=== PATIENT | male | born 1960 | race Caucasian/White ===

== ENCOUNTER 2017-03-03 11:31 | Day surgery (SDC) | payer BC ==
[2017-02-27 13:28] VITALS: BMI 33.0
[~2017-03-03 11:31] MED LIST: DEXAMETHASONE SOD PHOSPHATE 10 MG/ML 1 ML VIAL IV ONE; HEPARIN SODIUM,PORCINE 5,000 UNIT/ML 1 ML VIAL SQ ONE; LACTATED RINGERS 1,000 ML IV SCH; ONDANSETRON 4 MG/2 ML VIAL IVP ONE; ceFAZolin 2 GM in SODIUM CHLORIDE 0.9% 100 ML IVPB ONE
[2017-03-03 12:21] LABS: Glucose,Whole Blood 125 mg/dL (75-99)
[2017-03-03 12:39] VITALS: TEMP 97.2
--- NOTE | 2017-03-03 13:11 | P.GSHP ---
History of Present Illness H&P Date: 03/03/17 Chief Complaint: Right inguinal hernia Patient here today with complaints of a bulge in the right groin. This is been enlarging in size and is more uncomfortable lately. He was found in the office to have a reducible right inguinal hernia. No nausea or vomiting. No change in bowel habits. No history of prior hernias. No left-sided complaints. Past Medical History Past Medical History: Diabetes Mellitus, Hyperlipidemia Additional Past Medical History / Comment(s): inguinal hernia History of Any Multi-Drug Resistant Organisms: None Reported Past Surgical History: Orthopedic Surgery, Tonsillectomy Additional Past Surgical History / Comment(s): LT KNEE SCOPE X2 Past Anesthesia/Blood Transfusion Reactions: No Reported Reaction Smoking Status: Never smoker - Past Family History Mother Family Medical History: No Reported History Medications and Allergies Home Medications Medication Instructions Recorded Confirmed Type Atorvastatin [Lipitor] 40 mg PO DAILY 06/06/15 03/03/17 History Fish Oil/Dha/Epa [Fish Oil 1,200 1,200 mg PO BID 06/06/15 03/03/17 History mg Fish Oil] Loratadine [Claritin] 10 mg PO DAILY 06/06/15 03/03/17 History Multivitamin [Men's Multi-Vitamin] 1 tab PO DAILY 06/06/15 03/03/17 History glyBURIDE [Diabeta] 2.5 mg PO AC-BRKFST 06/06/15 03/03/17 History metFORMIN HCL [Glucophage] 1,000 mg PO BID 06/06/15 03/03/17 History Dapagliflozin Propanediol [Farxiga] 5 mg PO DAILY 02/27/17 03/03/17 History Lisinopril [Zestril] 2.5 mg PO QAM 02/27/17 03/03/17 History Allergies Allergy/AdvReac Type Severity Reaction Status Date / Time No Known Allergies Allergy Verified 03/03/17 12:00 Surgical - Exam Vital Signs Temp Pulse Resp BP Pulse Ox 97.2 F L 68 16 142/95 97 03/03/17 12:37 03/03/17 12:37 03/03/17 12:37 03/03/17 12:37 03/03/17 12:37 Physical exam: General: Well-developed, well-nourished HEENT: Normocephalic, sclerae nonicteric Abdomen: Nontender, nondistended, reducible right inguinal hernia, both testes normal Extremities: No edema Neuro: Alert and oriented Results - Labs Abnormal Lab Results - Last 24 Hours (Table) 03/03/17 Range/Units 12:19 POC Glucose (mg/dL) 125 H (75-99) mg/dL Assessment and Plan (1) Right inguinal hernia Narrative/Plan: Will proceed with da Doreen assisted laparoscopic right inguinal hernia repair. Plans for mesh utilization discussed. Risks of bleeding, infection, recurrence , nerve injury, numbness, pain, bladder and bowel injury, conversion to an open procedure was discussed. He understands and wishes to proceed. Status: Acute
[2017-03-03] MEDS ORDERED: MIDAZOLAM 2 MG/2 ML VIAL ONE (14:29)
[2017-03-03] MEDS ORDERED: LIDOCAINE 1% INJ 10MG/ML (20 ML MDV) ONE (14:29)
[2017-03-03] MEDS ORDERED: PROPOFOL 10 MG/ML 20 ML VIAL IV ONE (14:29)
[2017-03-03] MEDS ORDERED: NEOSTIGMINE 1 MG/ML 10 ML VIAL ONE (14:29)
[2017-03-03] MEDS ORDERED: fentaNYL (PF) 50 MCG/ML 2 ML AMP ONE (14:29)
[2017-03-03] MEDS ORDERED: SUCCINYLCHOLINE CHLORIDE 100 MG/5 ML SYR IV ONE (14:29)
[2017-03-03] MEDS ORDERED: ePHEDrine SULFATE/0.9% NACL/PF 50 MG/5 ML SYRINGE IV ONE (14:29)
[2017-03-03] MEDS ORDERED: ROCURONIUM BROMIDE 10 MG/ML 10 ML VIAL IV ONE (14:29)
[2017-03-03] MEDS ORDERED: GLYCOPYRROLATE 0.2 MG/ML 2 ML VIAL ONE (14:29)
[2017-03-03] MEDS ORDERED: BUPIVACAINE (PF) 0.25% 30 ML VIAL SQ ONE ×2 (14:57)
[2017-03-03] MEDS ORDERED: LACTATED RINGERS 1,000 ML IV ONE (17:19)
[2017-03-03] MEDS ORDERED: NALOXONE 0.4 MG/ML 1 ML VIAL IV PRN (17:27)
[2017-03-03] MEDS ORDERED: HYDROcodone/APAP 5-325MG 1 EACH TAB PO PRN (17:27)
[2017-03-03] MEDS ORDERED: HYDROmorphone 1 MG/ML 1 ML SYRINGE IVP PRN (17:27)
--- NOTE | 2017-03-03 17:34 | P.OP ---
Date of Procedure: 03/03/17 Procedure(s) Performed: PREOPERATIVE DIAGNOSIS: Right inguinal hernia POSTOPERATIVE DIAGNOSIS: Same PROCEDURE: Laparoscopic repair 8 inguinal hernia with the da Doreen robot assistance SURGEON: Arlene EBL: Minimal ANESTHESIA: General COMPLICATIONS: None OPERATIVE PROCEDURE: Patient was placed in the operating table in the supine position. The patient was then placed in lithotomy. The abdomen was prepped and draped in usual sterile fashion. A small vertical supraumbilical incision was made. The fascia was retracted anteriorly with Jose forceps. The Veress needle was inserted. The saline drop test was normal. Insufflation took place to 15 mmHg. A 12 mm trocar was then inserted. 2 additional 8 mm trochars were placed in the right upper quadrant and left upper quadrant under visualization. The robotic arms were then brought in and docked into place. The fenestrated bipolar was used in the left arm and the laparoscopic kit was utilized in the right arm. A 30 12 mm scope was used in the up position. The peritoneal cavity was inspected. The patient had a sliding indirect right inguinal hernia. The cecum was extending into the inguinal canal 1-2 cm. The appendix was noted to be deeper in the pelvis away from the hernia. The left groin was inspected and there was a subtle depression at the internal inguinal ring without obvious hernia. Some of the adhesions between the omentum and the right lower quadrant were divided using sharp dissection. The peritoneum was then opened cephalad to the internal inguinal ring by several centimeters. Following that careful dissection of the preperitoneal space took place. This took place using both electrocautery and sharp dissection and primarily blunt dissection. Visualization of the pubic tubercle and Miguelito's ligament took place medially. Full dissection took place laterally as well. The patient's hernia was fairly large in size. There was some induration at the very tip of the hernia sac but this was able to be fully mobilized back into the abdominal cavity. In our dissection laterally there was noted to be a defect in the abdominal wall musculature approximately 4-5 cm lateral to the internal inguinal ring and there was a portion of fat emanating through that defect. The defect was about 1.5 cm in diameter. This was an atypical appearing hernia but thankfully one that we were able to visualize and mobilize. The gonadal vessels and vas deferens were identified as part of our dissection. Care was taken to avoid use of cautery in the vicinity of the cecum. Once we had the preperitoneal space fully dissected the 15 x 10 progrip mesh was advanced into the preperitoneal space and flattened out appropriately to cover all potential hernia sites. No sutures were used. The peritoneal defect was then closed using a locking 2-0 Bridgman effects suture. 2 small defects in the peritoneum were reapproximated using short running 3-0 Vicryl sutures. A portion of the redundant hernia sac was sutured superiorly and anteriorly as well. The pneumoperitoneum was then evacuated. The fascia at the 12 mm site was closed using the Rob Parker technique and a 0 Vicryl stitch. The skin of all 3 sites was closed using a 4-0 Monocryl stitch. Steri-Strips and sterile dressings were applied. DISPOSITION: Stable to recovery room
[2017-03-03] MEDS ORDERED: KETOROLAC 30 MG/ML 1 ML VIAL IVP ONE (17:59)
[2017-03-03] MEDS: HYDROmorphone 1 MG/ML 1 ML SYRINGE IVP PRN ×2 (18:03→18:05)
[2017-03-03 18:35] VITALS: RESP 18
[2017-03-03 19:06] LABS: Glucose,Whole Blood 168 mg/dL (75-99)
[2017-03-03 19:51] VITALS: BP 148/80; PULSE 85
== END 2017-03-03 20:15 | disposition home or self-care (01) ==
LOC: OR 11:31
PROVIDERS: ATTEND Surgery
DX: K40.90 Unilateral inguinal hernia, without obstruction or gangrene, not specified as recurrent (principal); E11.9 Type 2 diabetes mellitus without complications; E78.5 Hyperlipidemia, unspecified; I10 Essential (primary) hypertension; Z79.84 Long term (current) use of oral hypoglycemic drugs; Z79.899 Other long term (current) drug therapy
CPT/HCPCS: 49650; S2900

== ENCOUNTER → 2019-06-07 | Outpatient (CLI) | payer BC ==
[~2019-06-07] MED LIST changes: -DEXAMETHASONE SOD PHOSPHATE 10 MG/ML 1 ML VIAL IV ONE; -HEPARIN SODIUM,PORCINE 5,000 UNIT/ML 1 ML VIAL SQ ONE; -LACTATED RINGERS 1,000 ML IV SCH; -ONDANSETRON 4 MG/2 ML VIAL IVP ONE; +REGADENOSON 0.4 MG/5 ML SYRINGE IV ONE; -ceFAZolin 2 GM in SODIUM CHLORIDE 0.9% 100 ML IVPB ONE
--- NOTE | 2019-06-07 12:20 | NM ---
EXAMINATION TYPE: NM stress lexiscan cardiolite DATE OF EXAM: 06/07/2019 COMPARISON: NONE HISTORY: Precordial chest pain TECHNIQUE: After the intravenous administration of 10.47 mCi Tc 99m Sestamibi - Cardiolite resting S PECT images acquired 50 minutes post injection. The patient received 0.4mg Lexiscan, 25.9 mCi Tc 99m Sestamibi - Stress images obtained [address] injection FINDINGS: Review of stress and rest SPECT images demonstrates no distinct perfusion abnormality. Gated analysi s shows normal wall motion with an estimated left ventricular ejection fraction of 65 %. IMPRESSION: No scintigraphic evidence for reversible ischemia.
--- NOTE | 2019-06-07 13:00 | EST ---
EXERCISE STRESS AGE: 58 SEX: M HT: 74" WT: 254 PROTOCOL: Lexiscan Cardiolite Stress Test HEART RATE REST: 65 BLOOD PRESSURE REST: 140/79 MAXIMUM HEART RATE ACHIEVED: 87 MAXIMUM BLOOD PRESSURE: 142/75 INDICATIONS: Chest pain. CLINICAL INFORMATION: Baseline rhythm is sinus mechanism rate of 65, normal axis, intervals, poor R-wave progression. baseline blood pressure 140/79 mmHg. Patient received an injection of Lexiscan. Electrocardiographic monitoring revealed no evidence of diagnostic ischemic ST deviation, rare PVCs were noted. Cardiolite was injected per protocol. CONCLUSION: 1. Nondiagnostic electrocardiograph stress testing. 2. Rare premature ventricular contractions. 3. Nuclear images will be reported separately. MMODL / IJN: [id number] /
== END | disposition home or self-care (01) ==
LOC: RADNMMAIN 07:47
PROVIDERS: ATTEND Family Medicine
DX: R07.9 Chest pain, unspecified (principal); Z88.8 Allergy status to other drugs, medicaments and biological substances
CPT/HCPCS: 93017; 78452; A9500; J2785

== ENCOUNTER → 2020-01-04 | Outpatient (CLI) | payer BC ==
[2020-01-04 16:55] LABS: African American GFR (CKD) 121.4 (60.0-200.0); Albumin 4.6 g/dL (3.80-4.90); Albumin/Globulin Ratio 2.42 (1.60-3.17); Anion Gap 8.2 mmol/L (4.00-12.00); BUN/Creat Ratio 27.14 Ratio (12.00-20.00); Calcium 9.8 mg/dL (8.7-10.3); Carbon Dioxide 28.8 mmol/L (21.6-31.8); Chol/HDL Ratio 3.41; Globulin 1.9 g/dL (1.6-3.3); LDL Cholesterol,Calculated 36.8 mg/dL (0.0-131.0); Non-African American GFR(CKD) 104.8 (60.0-200.0); Potassium 4.7 mmol/L (3.5-5.5); Total Protein 6.5 g/dL (6.2-8.2); VLDL Calculation 33.2 mg/dL (5.00-40.00)
== END | disposition home or self-care (01) ==
LOC: LABWHC1 08:44
PROVIDERS: ATTEND Family Medicine
DX: Z00.01 Encounter for general adult medical examination with abnormal findings (principal); E78.2 Mixed hyperlipidemia
CPT/HCPCS: 36415; 80053; 80061; 84153